=== PATIENT | male | born 1985 | race Caucasian/White ===

== ENCOUNTER 2019-01-25 12:46 | Emergency (ER) | payer OTHER ==
[~2019-01-25] VITALS: Ht 175.3 cm; Wt 87.2 kg
[~2019-01-25 12:46] MED LIST: ATIV1TAB7 PO; BACT800T5 PO; BENADRYL TOP; CEPH500T PO; EFFE150C2 PO; EFFE75CA2 PO; GABA-843 PO; MINI1CAP PO; NEUR600T PO; TEMO0.0520 TOP; VIVI380I IM; WELLTAB38 PO
[2019-01-25] MEDS ORDERED: AMIT50TA PO (12:55)
[2019-01-25] MEDS ORDERED: BUPR300T34 (12:55)
[2019-01-25] MEDS ORDERED: HYDR-3716 (12:55)
[2019-01-25] MEDS ORDERED: DIAZ5TAB (12:55)
[2019-01-25] MEDS ORDERED: VENL150C43 (12:55)
[2019-01-25 13:25] LABS: HEMATOCRIT 45.7 % (42.0-52.0); MEAN CORPUSCULAR HEMOGLOBIN 30.9 pg (27.0-33.0); MEAN CORPUSCULAR VOLUME 88.2 fl (80.0-96.0); PLATELET COUNT, AUTOMATED 277 10^3/uL (150-450); RED BLOOD COUNT 5.18 10^6/uL (4.30-6.10); WHITE BLOOD COUNT 5.2 10^3/uL (4.0-10.0)
[2019-01-25 13:54] LABS: AMPHETAMINES LEVEL URINE NEGATIVE (NEGATIVE); BARBITURATES URINE NEGATIVE (NEGATIVE); BENZODIAZEPINES URINE POSITIVE (NEGATIVE); CANNABINOIDS URINE NEGATIVE (NEGATIVE); COCAINE METABOLITE URINE POSITIVE (NEGATIVE); METHADONE URINE NEGATIVE (NEGATIVE); OPIATES URINE POSITIVE (NEGATIVE); PHENCYCLIDINE URINE NEGATIVE (NEGATIVE)
[2019-01-25 14:10] LABS: ALBUMIN 3.8 GM/DL (3.2-5.2); ALT/SGPT 27 U/L (12-78); BILIRUBIN,DIRECT 0.1 MG/DL (0.0-0.2); BILIRUBIN,TOTAL 0.3 MG/DL (0.2-1.0); BLOOD UREA NITROGEN 10 MG/DL (7-18); CALCIUM LEVEL 8.6 MG/DL (8.5-10.1); CARBON DIOXIDE LEVEL 27 MEQ/L (21-32); CHLORIDE LEVEL 108 MEQ/L (98-107); CPK CREATINE PHOSPHOKINASE 50 U/L (39-308); CREATININE FOR GFR 0.72 MG/DL (0.70-1.30); GLOMERULAR FILTRATION RATE > 60.0 (>60); GLUCOSE, FASTING 95 MG/DL (70-100); POTASSIUM SERUM 3.9 MEQ/L (3.5-5.1); SALICYLATE LEVEL < 1.7 MG/DL (5.0-30.0); SODIUM LEVEL 141 MEQ/L (136-145); THYROID STIMULATING HORMONE 0.165 uIU/ML (0.358-3.740)
[2019-01-25 14:12] LABS: ACETAMINOPHEN LEVEL < 2.0 UG/ML (10.0-30.0); ETHYL ALCOHOL (ETHANOL) < 0.003 % (0.000-0.010)
[2019-01-25] MEDS ORDERED: cloNIDine 0.1 MG TAB PO ONE (19:30)
[2019-01-25] MEDS ORDERED: LORazepam 1 MG TAB PO ONE (19:30)
[2019-01-26 02:03] VITALS: BP 129/82
--- NOTE | 2019-01-26 21:03 | ECGEPIP ---
Stationary ECG Study [facility] - ED Test Date: 2019-01-25 Pat Name: NARESH DE JESUS Department: Room: - Gender: M Warehouse Coordinator: JT : 1985 Requested By: Ilene Cardona Order Number: [id number] Reading MD: Ilene Cardona Measurements Intervals [place] Rate: 80 P: 39 [place]: 121 QRS: 64 QRSD: 98 T: 41 QT: 344 QTc: 397 Interpretive Statements SINUS RHYTHM WITH MARKED SINUS ARRHYTHMIA DECREASED RATE 06/17/16 Electronically Signed On 01-26-2019 21:03:10 EDT by Ilene Cardona
== END 2019-01-26 02:09 ==
LOC: M ED 12:46
DX: R45.851 Suicidal ideations (principal); Z91.5 Personal history of self-harm; F32.9 Major depressive disorder, single episode, unspecified; F14.10 Cocaine abuse, uncomplicated; F13.10 Sedative, hypnotic or anxiolytic abuse, uncomplicated; Z79.899 Other long term (current) drug therapy; J30.2 Other seasonal allergic rhinitis
CPT/HCPCS: 80048; 80076; 80307; 82550; 84443; 85027; 93005; 99285; G0480

== ENCOUNTER 2019-12-03 20:01 | Emergency (ER) | payer MEDICAID, OTHER ==
[~2019-12-03] VITALS: Ht 175.3 cm; Wt 82.6 kg
[~2019-12-03 20:01] MED LIST changes: +AMIT50TA PO; +BUPR300T92; +DIAZ5TAB; +HYDR-3716; +VENL150C43
[2019-12-03] MEDS ORDERED: METH5TA PO (20:10)
[2019-12-03] MEDS ORDERED: OXYB5TAB10 PO (20:10)
[2019-12-03] MEDS ORDERED: CLON0.2T PO (20:10)
[2019-12-03 22:59] LABS: BASO # 0.1 10^3/uL (0.0-0.2); EOS # 0.2 10^3/uL (0.0-0.5); EOS % 1.4 % (0.0-3.0); HEMATOCRIT 46.4 % (42.0-52.0); HEMOGLOBIN 16.2 g/dl (13.5-17.5); LYMPH # 2.6 10^3/uL (1.5-5.0); LYMPH % 25.4 % (24.0-44.0); MEAN CORPUSCULAR HEMOGLOBIN 30.6 pg (27.0-33.0); MEAN CORPUSCULAR HGB CONC 34.9 g/dl (32.0-36.5); MEAN CORPUSCULAR VOLUME 87.5 fl (80.0-96.0); MONO # 1.3 10^3/uL (0.0-0.8); MONO % 12.1 % (0.0-5.0); NEUTROPHILS # 6.2 10^3/uL (1.5-8.5); NEUTROPHILS % 59.8 % (36.0-66.0); PLATELET COUNT, AUTOMATED 254 10^3/uL (150-450); WHITE BLOOD COUNT 10.4 10^3/uL (4.0-10.0)
[2019-12-03 23:41] VITALS: BP 140/74
--- NOTE | 2019-12-04 18:56 | ECGEPIP ---
[facility] - ED Test Date: 2019-12-03 Pat Name: NARESH DE JESUS Department: Room: - Gender: Male Kinesiologist: HUY : 1985 Requested By: JIE Lemos PA-C Order Number: [id number] Reading MD: Ilene Cardona Measurements Intervals [place] Rate: 90 P: 18 [place]: 136 QRS: 48 QRSD: 97 T: 26 QT: 345 QTc: 424 Interpretive Statements SINUS RHYTHM WITH SINUS ARRHYTHMIA INCREASED RATE 01/25/19 Electronically Signed on 12-04-2019 18:56:15 EDT by Ilene Cardona
== END 2019-12-03 23:43 | disposition home or self-care (01) ==
LOC: M ED 20:01
DX: R06.02 Shortness of breath (principal); R20.2 Paresthesia of skin; F41.9 Anxiety disorder, unspecified; F11.20 Opioid dependence, uncomplicated; J30.2 Other seasonal allergic rhinitis; Z79.899 Other long term (current) drug therapy

== ENCOUNTER → 2020-12-08 | Outpatient (CLI) | payer OTHER ==
[~2020-12-08] MED LIST changes: +CLON0.2T PO; +GABA-282 PO; -GABA-843 PO; +METH5TA PO; +OXYB5TAB10 PO
[2020-12-08 15:52] LABS: HEMATOCRIT 43.8 % (42.0-52.0); HEMOGLOBIN 14.7 g/dl (13.5-17.5); MEAN CORPUSCULAR HEMOGLOBIN 30.4 pg (27.0-33.0); MEAN CORPUSCULAR HGB CONC 33.6 g/dl (32.0-36.5); MEAN CORPUSCULAR VOLUME 90.7 fl (80.0-96.0); PLATELET COUNT, AUTOMATED 250 10^3/uL (150-450); RED BLOOD COUNT 4.83 10^6/uL (4.30-6.10); WHITE BLOOD COUNT 6.8 10^3/uL (4.0-10.0)
[2020-12-08 16:23] LABS: ALBUMIN 4.1 GM/DL (3.2-5.2); ALT/SGPT 295 U/L (12-78); BILIRUBIN,TOTAL 0.3 MG/DL (0.2-1.0); BLOOD UREA NITROGEN 18 MG/DL (7-18); CALCIUM LEVEL 9.1 MG/DL (8.5-10.1); CARBON DIOXIDE LEVEL 28 MEQ/L (21-32); CHLORIDE LEVEL 106 MEQ/L (98-107); CREATININE FOR GFR 0.68 MG/DL (0.70-1.30); GLOMERULAR FILTRATION RATE > 60.0 (>60); GLUCOSE, FASTING 77 MG/DL (70-100); POTASSIUM SERUM 4.3 MEQ/L (3.5-5.1); SODIUM LEVEL 139 MEQ/L (136-145); TOTAL PROTEIN 7.3 GM/DL (6.4-8.2)
[2020-12-08 16:42] LABS: HEPATITIS B SURFACE ANTIGEN NEGATIVE (NEGATIVE)
[2020-12-08 17:10] LABS: HIV 1&2 SCREEN CENTAUR NEGATIVE (NEGATIVE)
[2020-12-08 17:24] LABS: HEPATITIS C VIRUS ABY INDEX > 11.0 INDEX (<0.8)
--- NOTE | 2020-12-08 22:08 | ECGEPIP ---
[facility] Test Date: 2020-12-08 Pat Name: NARESH DE JESUS Department: Room: - Gender: Male Area Manager: zev : 1985 Requested By: Devin Menard Order Number: [id number] Reading MD: Dony Wu Measurements Intervals [place] Rate: 70 P: 28 [place]: 138 QRS: 55 QRSD: 90 T: 33 QT: 388 QTc: 419 Interpretive Statements Normal sinus rhythm Minimal voltage criteria for LVH, may be normal variant ( Sokolow-Raygoza ) Early repolarization. Decreased heart rate compared with 12/03/2019. Electronically Signed on 12-08-2020 22:08:17 EDT by Dony Wu
== END ==
LOC: M LAB 15:19
PROVIDERS: ATTEND Family Medicine
DX: F11.20 Opioid dependence, uncomplicated (principal)

== ENCOUNTER 2021-01-13 01:18 | Emergency (ER) | payer OTHER ==
[2021-01-13 01:36] VITALS: BP 136/99
[2021-01-13] MEDS ORDERED: GABA-845 PO (02:02)
== END 2021-01-13 02:05 | disposition home or self-care (01) ==
LOC: M ED 01:18
DX: F19.10 Other psychoactive substance abuse, uncomplicated (principal); R41.82 Altered mental status, unspecified; Z79.899 Other long term (current) drug therapy

== ENCOUNTER 2021-01-24 00:30 | Emergency (ER) | payer OTHER ==
[~2021-01-24 00:30] MED LIST changes: +GABA-845 PO
[2021-01-24 00:45] VITALS: BP 141/67
[2021-01-24] MEDS ORDERED: LORazepam 2 MG/ML VIAL IV STA (00:58)
[2021-01-24] MEDS ORDERED: NS 1,000 ML IV ONE (01:00)
[2021-01-24 01:10] LABS: HEMATOCRIT 36.9 % (42.0-52.0); HEMOGLOBIN 12.8 g/dl (13.5-17.5); MEAN CORPUSCULAR HEMOGLOBIN 31.2 pg (27.0-33.0); MEAN CORPUSCULAR HGB CONC 34.7 g/dl (32.0-36.5); PLATELET COUNT, AUTOMATED 312 10^3/uL (150-450); WHITE BLOOD COUNT 12.9 10^3/uL (4.0-10.0)
[2021-01-24 01:51] LABS: ALBUMIN 4.1 GM/DL (3.2-5.2); ALT/SGPT 88 U/L (12-78); BILIRUBIN,TOTAL 0.8 MG/DL (0.2-1.0); BLOOD UREA NITROGEN 21 MG/DL (7-18); CALCIUM LEVEL 9.4 MG/DL (8.5-10.1); CARBON DIOXIDE LEVEL 26 MEQ/L (21-32); CHLORIDE LEVEL 106 MEQ/L (98-107); CK-MB VALUE MASS 9.9 NG/ML (<3.6); CPK CREATINE PHOSPHOKINASE 189 U/L (39-308); CREATININE FOR GFR 0.59 MG/DL (0.70-1.30); GLOMERULAR FILTRATION RATE > 60.0 (>60); GLUCOSE, FASTING 86 MG/DL (70-100); LIPASE 57 U/L (73-393); MB/CK RELATIVE INDEX 5.24 (< OR =4); POTASSIUM SERUM 3.6 MEQ/L (3.5-5.1); SODIUM LEVEL 141 MEQ/L (136-145); TOTAL PROTEIN 6.8 GM/DL (6.4-8.2); TROPONIN I < 0.02 NG/ML (< 0.10)
--- NOTE | 2021-01-24 06:23 | ECGEPIP ---
[facility] - ED Test Date: 2021-01-24 Pat Name: NARESH DE JESUS Department: Room: - Gender: Male Radio Time Sales Supervisor: DARIAN : 1985 Requested By: Je Moran Order Number: [id number] Reading MD: Balwinder Lazo Measurements Intervals [place] Rate: 108 P: 45 MS: 126 QRS: 53 QRSD: 90 T: 40 QT: 348 QTc: 466 Interpretive Statements Sinus tachycardia Minimal voltage criteria for LVH, may be normal variant ( Sokolow-Raygoza ) Nonspecific ST T wave changes Borderline prolonged QTc cw 12/08/[address] T wave changes Electronically Signed on 01-24-2021 6:22:48 EDT by Balwinder Lazo
== END 2021-01-24 02:13 | disposition home or self-care (01) ==
LOC: M ED 00:30
DX: F15.129 Other stimulant abuse with intoxication, unspecified (principal); R07.9 Chest pain, unspecified; R00.0 Tachycardia, unspecified; R10.9 Unspecified abdominal pain; L40.9 Psoriasis, unspecified; F43.10 Post-traumatic stress disorder, unspecified; F41.9 Anxiety disorder, unspecified; F33.9 Major depressive disorder, recurrent, unspecified
CPT/HCPCS: 80053; 82550; 82553; 83690; 85027; 93005; 96361; 96374; 99284; J2060

== ENCOUNTER → 2021-03-23 | Outpatient (CLI) | payer OTHER ==
[~2021-03-23] MED LIST changes: +GABA-283 PO; -GABA-845 PO
[2021-03-23 10:45] LABS: ALBUMIN 3.8 GM/DL (3.2-5.2); BILIRUBIN,DIRECT 0.2 MG/DL (0.0-0.2); BILIRUBIN,TOTAL 0.4 MG/DL (0.2-1.0); TOTAL PROTEIN 7.2 GM/DL (6.4-8.2)
== END ==
LOC: M LAB 09:22
PROVIDERS: ATTEND Internal Medicine Gastroenterology
DX: B18.2 Chronic viral hepatitis C (principal)

== ENCOUNTER → 2021-04-01 | Outpatient (CLI) | payer OTHER ==
[~2021-04-01] MED LIST changes: +HALO0.052; +METH36TA5
== END ==
LOC: M RAD 07:24
PROVIDERS: ATTEND Internal Medicine Gastroenterology
DX: B18.2 Chronic viral hepatitis C (principal)

== ENCOUNTER 2021-05-09 06:03 | Emergency (ER) | payer OTHER ==
[~2021-05-09 06:03] MED LIST changes: -HALO0.052; -METH36TA5
== END 2021-05-09 06:19 | disposition left against medical advice (07) ==
LOC: M ED 06:08
DX: Z53.21 Procedure and treatment not carried out due to patient leaving prior to being seen by health care provider (principal)

== ENCOUNTER 2021-05-13 13:10 | Emergency (ER) | payer OTHER ==
[~2021-05-13] VITALS: Ht 175.3 cm; Wt 98.2 kg
[2021-05-13] MEDS ORDERED: HALO0.052 (13:32)
[2021-05-13] MEDS ORDERED: METH36TA5 (13:32)
--- NOTE | 2021-05-13 14:26 | REP ---
INDICATION: pain with no injury COMPARISON: None. TECHNIQUE: AP, lateral, bilateral oblique views . FINDINGS: There appears to be a presumed acute/subacute fracture at the base of the 5th metatarsal bone as well as acute transverse fracture through the distal aspect of the 4th metatarsal shaft. Remainder of the examination appears normal. IMPRESSION: Fractures of the 4th and 5th metatarsal bones as above. <Electronically signed by Jimenez Lind > 05/13/21 [id number]
[2021-05-13 17:09] LABS: BASO % 0.6 % (0.0-1.0); EOS # 0.1 10^3/uL (0.0-0.5); EOS % 1.4 % (0.0-3.0); HEMATOCRIT 43.3 % (42.0-52.0); HEMOGLOBIN 14.6 g/dl (13.5-17.5); LYMPH % 31.3 % (24.0-44.0); MEAN CORPUSCULAR HEMOGLOBIN 30.5 pg (27.0-33.0); MEAN CORPUSCULAR HGB CONC 33.7 g/dl (32.0-36.5); MEAN CORPUSCULAR VOLUME 90.4 fl (80.0-96.0); MONO # 0.4 10^3/uL (0.0-0.8); MONO % 5.9 % (2.0-8.0); NEUTROPHILS # 3.8 10^3/uL (1.5-8.5); NEUTROPHILS % 59.9 % (36.0-66.0); PLATELET COUNT, AUTOMATED 267 10^3/uL (150-450); RED BLOOD COUNT 4.79 10^6/uL (4.30-6.10); WHITE BLOOD COUNT 6.4 10^3/uL (4.0-10.0)
[2021-05-13 17:33] LABS: ERYTHROCYTE SEDIMENTATION RATE 8 mm/hr (0-15)
[2021-05-13 18:01] VITALS: BP 166/83
== END 2021-05-13 18:04 | disposition home or self-care (01) ==
LOC: M ED 13:10
DX: S92.354A Nondisplaced fracture of fifth metatarsal bone, right foot, initial encounter for closed fracture (principal); S92.344A Nondisplaced fracture of fourth metatarsal bone, right foot, initial encounter for closed fracture; X58.XXXA Exposure to other specified factors, initial encounter; Y92.9 Unspecified place or not applicable; Y93.9 Activity, unspecified; Y99.9 Unspecified external cause status; L97.519 Non-pressure chronic ulcer of other part of right foot with unspecified severity; F17.200 Nicotine dependence, unspecified, uncomplicated; F19.10 Other psychoactive substance abuse, uncomplicated; J30.2 Other seasonal allergic rhinitis; Z91.048 Other nonmedicinal substance allergy status; Z79.899 Other long term (current) drug therapy

== ENCOUNTER → 2021-05-24 | Outpatient (REF) | payer OTHER ==
[~2021-05-24] MED LIST changes: +HALO0.052; +METH36TA5
== END ==
LOC: M WUC 16:03 → M LAB REF 16:03
PROVIDERS: ATTEND Orthopaedic Surgery
DX: S92.301A Fracture of unspecified metatarsal bone(s), right foot, initial encounter for closed fracture (principal); X58.XXXA Exposure to other specified factors, initial encounter; Y92.9 Unspecified place or not applicable

== ENCOUNTER → 2021-06-15 | Outpatient (CLI) | payer OTHER ==
--- NOTE | 2021-06-15 12:19 | REP ---
INDICATION: RT FOOT FX. COMPARISON: 05/13/2021 TECHNIQUE: Three views FINDINGS: The distal diaphyseal 4th metatarsal fracture is healing. Callus formation is evident. The fracture involving the base of the 5th metatarsal which is seen best on the lateral view is also healing with callus formation evident. There is no evidence of an acute fracture on this limited three-view exam. IMPRESSION: Healing fractures as described above. <Electronically signed by Rodney Camacho > 06/15/21 [id number]
== END ==
LOC: M SOG 11:48
PROVIDERS: ATTEND Orthopaedic Surgery
DX: S92.343D Displaced fracture of fourth metatarsal bone, unspecified foot, subsequent encounter for fracture with routine healing (principal); S92.351D Displaced fracture of fifth metatarsal bone, right foot, subsequent encounter for fracture with routine healing; X58.XXXD Exposure to other specified factors, subsequent encounter

== ENCOUNTER → 2021-06-20 | Outpatient (CLI) | payer OTHER ==
[2021-06-20 20:03] LABS: ALBUMIN 3.9 GM/DL (3.2-5.2); ALT/SGPT 26 U/L (12-78); BILIRUBIN,DIRECT < 0.1 MG/DL (0.0-0.2); BILIRUBIN,TOTAL 0.2 MG/DL (0.2-1.0)
== END ==
LOC: M WUC 15:32
PROVIDERS: ATTEND Internal Medicine Gastroenterology
DX: B18.2 Chronic viral hepatitis C (principal); R94.5 Abnormal results of liver function studies

== ENCOUNTER → 2021-09-22 | Outpatient (CLI) | payer OTHER ==
[2021-09-22 15:59] LABS: HEMATOCRIT 44.6 % (42.0-52.0); HEMOGLOBIN 14.8 g/dl (13.5-17.5); MEAN CORPUSCULAR HEMOGLOBIN 29.8 pg (27.0-33.0); MEAN CORPUSCULAR HGB CONC 33.2 g/dl (32.0-36.5); MEAN CORPUSCULAR VOLUME 89.9 fl (80.0-96.0); PLATELET COUNT, AUTOMATED 285 10^3/uL (150-450); RED BLOOD COUNT 4.96 10^6/uL (4.30-6.10)
[2021-09-22 16:34] LABS: ALBUMIN 3.9 GM/DL (3.2-5.2); BILIRUBIN,DIRECT 0.1 MG/DL (0.0-0.2); BILIRUBIN,TOTAL 0.3 MG/DL (0.2-1.0); TOTAL PROTEIN 7.2 GM/DL (6.4-8.2)
== END ==
LOC: M WUC 10:29
PROVIDERS: ATTEND Internal Medicine Gastroenterology
DX: B18.2 Chronic viral hepatitis C (principal); R94.5 Abnormal results of liver function studies

== ENCOUNTER → 2021-11-18 | Outpatient (CLI) | payer OTHER | LOC: M LAB 08:39 | PROVIDERS: ATTEND Family Medicine | DX: F11.21 Opioid dependence, in remission (principal) | CPT/HCPCS: 36415; G0480 ==

== ENCOUNTER → 2021-12-21 | Outpatient (CLI) | payer OTHER ==
[~2021-12-21] MED LIST changes: +FAMO40TA3 PO
== END ==
LOC: M LABSMTC 11:40
PROVIDERS: ATTEND Anesthesiology
DX: Z11.52 Encounter for screening for COVID-19 (principal); Z20.822 Contact with and (suspected) exposure to COVID-19

== ENCOUNTER 2021-12-26 09:16 | Day surgery (SDC) | payer OTHER ==
[~2021-12-26] VITALS: Ht 175.3 cm; Wt 107.9 kg
[~2021-12-26 09:16] MED LIST changes: +LIDOCAINE 2% 100MG/5ML SDV (FOR ANES.) As Ordered ONE; +NS 1,000 ML IV ONE; +propofoL 200 MG/20 ML VIAL As Ordered ONE
[2021-12-26] MEDS ORDERED: propofoL 200 MG/20 ML VIAL As Ordered ONE (11:01)
[2021-12-26 11:30] VITALS: BP 137/95
== END 2021-12-26 11:41 | disposition home or self-care (01) ==
LOC: M OPP 09:16
PROVIDERS: ATTEND Internal Medicine Gastroenterology
DX: Z12.11 Encounter for screening for malignant neoplasm of colon (principal); Z80.0 Family history of malignant neoplasm of digestive organs; Z83.71 Family history of colonic polyps; K63.5 Polyp of colon; K64.8 Other hemorrhoids; Z86.14 Personal history of Methicillin resistant Staphylococcus aureus infection; Z79.899 Other long term (current) drug therapy; Z91.048 Other nonmedicinal substance allergy status; F17.210 Nicotine dependence, cigarettes, uncomplicated

== ENCOUNTER 2022-01-01 15:48 | Emergency (ER) | payer OTHER ==
[~2022-01-01] VITALS: Ht 175.3 cm; Wt 111.3 kg
[~2022-01-01 15:48] MED LIST changes: -LIDOCAINE 2% 100MG/5ML SDV (FOR ANES.) As Ordered ONE; -NS 1,000 ML IV ONE; -propofoL 200 MG/20 ML VIAL As Ordered ONE
[2022-01-01 15:49] VITALS: BP 143/94
[2022-01-01] MEDS ORDERED: ACETAMINOPHEN 500 MG TAB PO ONE (17:35)
== END 2022-01-01 18:26 | disposition home or self-care (01) ==
LOC: M ED 15:48
DX: S30.22XA Contusion of scrotum and testes, initial encounter (principal); X58.XXXA Exposure to other specified factors, initial encounter; Y92.9 Unspecified place or not applicable; Y93.9 Activity, unspecified; Y99.9 Unspecified external cause status; B18.2 Chronic viral hepatitis C; F41.9 Anxiety disorder, unspecified; F32.A Depression, unspecified; F43.10 Post-traumatic stress disorder, unspecified; F17.200 Nicotine dependence, unspecified, uncomplicated; F19.10 Other psychoactive substance abuse, uncomplicated; Z79.899 Other long term (current) drug therapy

== ENCOUNTER → 2022-01-09 | Outpatient (CLI) | payer OTHER ==
[2022-01-09 16:25] LABS: BASO # 0.1 10^3/uL (0.0-0.2); BASO % 0.8 % (0.0-1.0); EOS # 0.3 10^3/uL (0.0-0.5); EOS % 3.2 % (0.0-3.0); HEMATOCRIT 42.1 % (42.0-52.0); HEMOGLOBIN 14.2 g/dl (13.5-17.5); LYMPH # 2.9 10^3/uL (1.5-5.0); LYMPH % 37.3 % (24.0-44.0); MEAN CORPUSCULAR HEMOGLOBIN 30.3 pg (27.0-33.0); MEAN CORPUSCULAR HGB CONC 33.7 g/dl (32.0-36.5); MEAN CORPUSCULAR VOLUME 89.8 fl (80.0-96.0); MONO # 0.7 10^3/uL (0.0-0.8); MONO % 8.6 % (2.0-8.0); NEUTROPHILS # 3.8 10^3/uL (1.5-8.5); NEUTROPHILS % 49.5 % (36.0-66.0); PLATELET COUNT, AUTOMATED 312 10^3/uL (150-450); RED BLOOD COUNT 4.69 10^6/uL (4.30-6.10); WHITE BLOOD COUNT 7.7 10^3/uL (4.0-10.0)
[2022-01-09 17:08] LABS: ALBUMIN 4.1 GM/DL (3.2-5.2); ALT/SGPT 28 U/L (12-78); BILIRUBIN,TOTAL 0.3 MG/DL (0.2-1.0); BLOOD UREA NITROGEN 13 MG/DL (7-18); CALCIUM LEVEL 9.7 MG/DL (8.5-10.1); CARBON DIOXIDE LEVEL 25 MEQ/L (21-32); CHLORIDE LEVEL 110 MEQ/L (98-107); CREATININE FOR GFR 0.66 MG/DL (0.70-1.30); GLOMERULAR FILTRATION RATE > 60.0 (>60); GLUCOSE, FASTING 101 MG/DL (70-100); POTASSIUM SERUM 4.5 MEQ/L (3.5-5.1); SODIUM LEVEL 141 MEQ/L (136-145)
== END ==
LOC: M WUC 14:14
PROVIDERS: ATTEND Specialist
DX: L40.0 Psoriasis vulgaris (principal)

== ENCOUNTER 2022-09-23 21:22 | Emergency (ER) | payer OTHER ==
[~2022-09-23] VITALS: Ht 175.3 cm; Wt 104.5 kg
[2022-09-23 21:24] VITALS: BP 174/97
[2022-09-23 22:34] LABS: HEMATOCRIT 42.5 % (42.0-52.0); HEMOGLOBIN 14.4 g/dl (13.5-17.5); MEAN CORPUSCULAR HEMOGLOBIN 29.7 pg (27.0-33.0); MEAN CORPUSCULAR HGB CONC 33.9 g/dl (32.0-36.5); MEAN CORPUSCULAR VOLUME 87.6 fl (80.0-96.0); PLATELET COUNT, AUTOMATED 288 10^3/uL (150-450); RED BLOOD COUNT 4.85 10^6/uL (4.30-6.10); WHITE BLOOD COUNT 7.9 10^3/uL (4.0-10.0)
[2022-09-23 23:07] LABS: ALBUMIN 4.5 G/DL (3.2-5.2); ALKALINE PHOSPHATASE 96 U/L (46-116); ALT/SGPT 18 U/L (7.0-40); AST/SGOT 26 U/L (<34); BILIRUBIN,TOTAL 0.7 MG/DL (0.3-1.2); BLOOD UREA NITROGEN 17 MG/DL (9-23); CALCIUM LEVEL 9.4 MG/DL (8.5-10.1); CARBON DIOXIDE LEVEL 25 MMOL/L (20-31); CHLORIDE LEVEL 106 MMOL/L (98-107); CK-MB VALUE MASS 4.5 NG/ML (<3.6); CREATININE FOR GFR 0.64 MG/DL (0.70-1.30); GLOMERULAR FILTRATION RATE > 60.0 (>60); GLUCOSE, FASTING 111 MG/DL (60-100); POTASSIUM SERUM 3.9 MMOL/L (3.5-5.1); SODIUM LEVEL 140 MMOL/L (136-145); TOTAL PROTEIN 7.6 G/DL (5.7-8.2)
[2022-09-23 23:08] LABS: CPK CREATINE PHOSPHOKINASE 264 U/L (46-171)
[2022-09-23 23:09] LABS: BLOOD UREA NITROGEN 17 MG/DL (9-23); CALCIUM LEVEL 9.2 MG/DL (8.5-10.1); CARBON DIOXIDE LEVEL 21 MMOL/L (20-31); CHLORIDE LEVEL 107 MMOL/L (98-107); GLOMERULAR FILTRATION RATE > 60.0 (>60); GLUCOSE, FASTING 110 MG/DL (60-100); POTASSIUM SERUM 3.9 MMOL/L (3.5-5.1); SODIUM LEVEL 141 MMOL/L (136-145)
== END 2022-09-24 02:20 | disposition left against medical advice (07) ==
LOC: M ED 21:22
DX: Z53.21 Procedure and treatment not carried out due to patient leaving prior to being seen by health care provider (principal)

== ENCOUNTER → 2022-12-07 | Outpatient (CLI) | payer OTHER ==
[2022-12-07 12:12] LABS: HEMATOCRIT 43.5 % (42.0-52.0); HEMOGLOBIN 14.2 g/dl (13.5-17.5); MEAN CORPUSCULAR HEMOGLOBIN 29.4 pg (27.0-33.0); MEAN CORPUSCULAR HGB CONC 32.6 g/dl (32.0-36.5); MEAN CORPUSCULAR VOLUME 90.1 fl (80.0-96.0); PLATELET COUNT, AUTOMATED 222 10^3/uL (150-450); RED BLOOD COUNT 4.83 10^6/uL (4.30-6.10); WHITE BLOOD COUNT 6.1 10^3/uL (4.0-10.0)
[2022-12-07 12:19] LABS: ALKALINE PHOSPHATASE 93 U/L (46-116); ALT/SGPT 26 U/L (7.0-40); AST/SGOT 15 U/L (<34); BILIRUBIN,TOTAL 0.2 MG/DL (0.3-1.2); BLOOD UREA NITROGEN 14 MG/DL (9-23); CALCIUM LEVEL 9.6 MG/DL (8.5-10.1); CARBON DIOXIDE LEVEL 28 MMOL/L (20-31); CHLORIDE LEVEL 103 MMOL/L (98-107); CREATININE FOR GFR 0.67 MG/DL (0.70-1.30); GLOMERULAR FILTRATION RATE > 60.0 (>60); GLUCOSE, FASTING 111 MG/DL (60-100); POTASSIUM SERUM 4.2 MMOL/L (3.5-5.1); SODIUM LEVEL 139 MMOL/L (136-145)
[2022-12-07 12:32] LABS: HEPATITIS B SURFACE ANTIGEN NEGATIVE (NEGATIVE)
[2022-12-07 12:45] LABS: HIV 1&2 SCREEN CENTAUR NEGATIVE (NEGATIVE)
[2022-12-07 14:02] LABS: GC DNA AMPLIFICATION NEGATIVE (NEGATIVE)
[2022-12-07 15:28] LABS: HEPATITIS C VIRUS ABY INDEX 9.4 INDEX (<0.8)
== END ==
LOC: M WUC 10:02
PROVIDERS: ATTEND Family Medicine
DX: F11.20 Opioid dependence, uncomplicated (principal)
CPT/HCPCS: 36415; 80053; 85027; 86780; 86803; 87340; 87389; 87522; 87810; 87850; G0480

== ENCOUNTER → 2022-12-08 | Outpatient (CLI) | payer OTHER | LOC: M WUC 08:23 | PROVIDERS: ATTEND Family Medicine | DX: F11.20 Opioid dependence, uncomplicated (principal) | CPT/HCPCS: 36415; G0480 ==

== ENCOUNTER 2023-10-01 03:24 | Emergency (ER) | payer OTHER ==
[~2023-10-01] VITALS: Ht 175.3 cm; Wt 99.3 kg
[~2023-10-01 03:24] MED LIST changes: -EFFE150C2 PO; +EFFE150C3 PO; -GABA-283 PO; +GABA-284 PO; -OXYB5TAB10 PO; +OXYB5TAB11 PO
[2023-10-01 03:26] VITALS: BP 132/79; TEMP 98; O2SAT 98
== END 2023-10-01 06:15 | disposition left against medical advice (07) ==
LOC: M ED 03:24
DX: Z53.21 Procedure and treatment not carried out due to patient leaving prior to being seen by health care provider (principal)

== ENCOUNTER → 2023-11-14 | Outpatient (CLI) | payer OTHER ==
[~2023-11-14] MED LIST changes: -OXYB5TAB11 PO; +OXYB5TAB14 PO
[2023-11-14 16:47] LABS: HEMATOCRIT 39.5 % (42.0-52.0); HEMOGLOBIN 13.1 g/dl (13.5-17.5); MEAN CORPUSCULAR HEMOGLOBIN 28.4 pg (27.0-33.0); MEAN CORPUSCULAR HGB CONC 33.2 g/dl (32.0-36.5); MEAN CORPUSCULAR VOLUME 85.5 fl (80.0-96.0); PLATELET COUNT, AUTOMATED 368 10^3/uL (150-450); RED BLOOD COUNT 4.62 10^6/uL (4.30-6.10); WHITE BLOOD COUNT 7.6 10^3/uL (4.0-10.0)
[2023-11-14 17:11] LABS: ALKALINE PHOSPHATASE 103 U/L (46-116); ALT/SGPT 24 U/L (7.0-40); AST/SGOT 27 U/L (<34); BILIRUBIN,TOTAL 0.2 MG/DL (0.3-1.2); BLOOD UREA NITROGEN 19 MG/DL (9-23); CALCIUM LEVEL 9.4 MG/DL (8.5-10.1); CARBON DIOXIDE LEVEL 24 MMOL/L (20-31); CHLORIDE LEVEL 106 MMOL/L (98-107); CREATININE FOR GFR 0.66 MG/DL (0.70-1.30); GLOMERULAR FILTRATION RATE > 60.0 (>60); GLUCOSE, FASTING 89 MG/DL (60-100); POTASSIUM SERUM 4.1 MMOL/L (3.5-5.1); SODIUM LEVEL 138 MMOL/L (136-145); TOTAL PROTEIN 7.4 G/DL (5.7-8.2)
[2023-11-14 17:43] LABS: HIV 1&2 SCREEN NEGATIVE (NEGATIVE)
[2023-11-14 18:07] LABS: HEPATITIS C VIRUS ABY INDEX 3.34 INDEX (<0.8)
[2023-11-14 20:01] LABS: GC DNA AMPLIFICATION NEGATIVE (NEGATIVE)
== END ==
LOC: M WUC 10:50
PROVIDERS: ATTEND Family Medicine
DX: F11.20 Opioid dependence, uncomplicated (principal)

== ENCOUNTER → 2023-11-14 | Outpatient (CLI) | payer OTHER ==
[2023-11-14 16:48] LABS: BASO # 0.1 10^3/uL (0.0-0.2); EOS # 0.2 10^3/uL (0.0-0.5); EOS % 2.1 % (0.0-3.0); HEMATOCRIT 39.5 % (42.0-52.0); HEMOGLOBIN 12.9 g/dl (13.5-17.5); LYMPH # 2.4 10^3/uL (1.5-5.0); LYMPH % 32.6 % (24.0-44.0); MEAN CORPUSCULAR HGB CONC 32.7 g/dl (32.0-36.5); MEAN CORPUSCULAR VOLUME 85.7 fl (80.0-96.0); MONO # 0.5 10^3/uL (0.0-0.8); MONO % 7.3 % (2.0-8.0); NEUTROPHILS # 4.1 10^3/uL (1.5-8.5); NEUTROPHILS % 56.7 % (36.0-66.0); PLATELET COUNT, AUTOMATED 382 10^3/uL (150-450); RED BLOOD COUNT 4.61 10^6/uL (4.30-6.10); WHITE BLOOD COUNT 7.3 10^3/uL (4.0-10.0)
[2023-11-14 17:13] LABS: ALBUMIN 3.9 G/DL (3.2-5.2); ALKALINE PHOSPHATASE 104 U/L (46-116); ALT/SGPT 24 U/L (7.0-40); AST/SGOT 27 U/L (<34); BILIRUBIN,TOTAL 0.2 MG/DL (0.3-1.2); BLOOD UREA NITROGEN 20 MG/DL (9-23); CALCIUM LEVEL 9.4 MG/DL (8.5-10.1); CARBON DIOXIDE LEVEL 24 MMOL/L (20-31); CHLORIDE LEVEL 107 MMOL/L (98-107); CREATININE FOR GFR 0.66 MG/DL (0.70-1.30); GLOMERULAR FILTRATION RATE > 60.0 (>60); GLUCOSE, FASTING 90 MG/DL (60-100); SODIUM LEVEL 137 MMOL/L (136-145); TOTAL PROTEIN 7.3 G/DL (5.7-8.2)
== END ==
LOC: M WUC 10:52
PROVIDERS: ATTEND Specialist
DX: L40.0 Psoriasis vulgaris (principal); L40.52 Psoriatic arthritis mutilans; Z79.899 Other long term (current) drug therapy